=== PATIENT | female | born 1980 | race Caucasian/White ===

== ENCOUNTER 2018-07-19 14:51 | Inpatient (IN) | payer OTHER ==
[2018-07-19 17:11] VITALS: BMI 24.1
--- NOTE | 2018-07-19 19:50 | HP ---
COWS - Scale Resting Pulse: 1= [place] 81-100 Sweatin=Flushed/Facial Moisture Restless Observation: 1= Difficult to Sit Still Pupil Size: 0= Normal to Room Light Bone or Joint Aches: 1= Mild Discomfort Runny Nose/ Eye Tearin= Nasal Congestion GI Upset > 30mins: 5=Frequent Vomit/Diarrhea Tremor Observation: 2= Slight Tremor Visible Yawning Observation: 1= 1-2x During Session Anxiety or Irritability: 2=Irritable/Anxious Goose Flesh Skin: 0=Smooth Skin COWS Score: 16 CIWA Score - CIWA Score Nausea/Vomitin Muscle Tremors: 4-Moderate,w/Arms Extend Anxiety: 3 Agitation: 3 Paroxysmal Sweats: 3 Orientation: 0-Oriented Tacttile Disturbances: 0-None Auditory Disturbances: 0-None Visual Disturbances: 0-None Headache: 1-Very Mild CIWA-Ar Total Score: 17 Admission ROS BHS - HPI Chief Complaint: I need to have detox" Allergies/Adverse Reactions: Allergies Allergy/AdvReac Type Severity Reaction Status Date / Time No Known Allergies Allergy Verified 07/19/18 19:00 History of Present Illness: Pt is a 38 y/o female with a 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 Stated she last used "21/2" days ago because I was running out of money". This is pt's first visit here. She stated she had detox in [facility] about a week ago. Endorses 3 years of Sobriety from 2014 - 2016, but relapsed last thanks when her brother from Overdose. Hx - Gastric bypass x 10 yrs ago, Blood clots(lung) x 17 yrs ago. Psych hx - Bipolar, depression,Anxiety. Denies past or current SI. Exam Limitations: No Limitations - Ebola screening Have you traveled outside of the country in the last 21 days: No (N) Have you had contact with anyone from an Ebola affected area: No Have you been sick,other than usual withdrawal symptoms: No Do you have a fever: No - Review of Systems Constitutional: Loss of Appetite, Unintentional Wgt. Loss EENT: reports: Blurred Vision (wears reading glasses) Respiratory: reports: No Symptoms reported Cardiac: reports: No Symptoms Reported GI: reports: Nausea, Poor Appetite, Abdominal cramping : reports: No Symptoms Reported Musculoskeletal: reports: Back Pain, Joint Pain Integumentary: reports: No Symptoms Reported Neuro: reports: Headache, Seizure (15 yrs ago) Endocrine: reports: No Symptoms Reported Hematology: reports: Anemia Psychiatric: reports: Orientated x3, Agitated, Anxious Other Systems: Reviewed and Negative Patient History - Patient Medical History Hx Anemia: Yes Hx Asthma: No Hx Chronic Obstructive Pulmonary Disease (COPD): No Hx Cancer: No Hx Cardiac Disorders: No Hx Congestive Heart Failure: No Hx Hypertension: No Hx Hypercholesterolemia: No Hx Pacemaker: No HX Cerebrovascular Accident: No Hx Seizures: No Hx Dementia: No Hx Diabetes: No Hx Gastrointestinal Disorders: No Hx Liver Disease: No Hx Genitourinary Disorders: No Hx Sexually Transmitted Disorders: No Hx Renal Disease (ESRD): No Hx Thyroid Disease: No Hx Human Immunodeficiency Virus (HIV): No (Negative last time tested) Hx Hepatitis C: No Hx Depression: Yes (On Gabapentin, Buspar, Wellbutrin) Hx Suicide Attempt: No (Denies ) Hx Bipolar Disorder: Yes Hx Schizophrenia: No - Patient Surgical History Past Surgical History: Yes Hx Abdominal Surgery: Yes (GAstric bypass - 2006, Umblical hernia repair - 2012) Hx Appendectomy: No Hx Cholecystectomy: No Hx Genitourinary Surgery: No Hx Section: No Hx Orthopedic Surgery: No Hx Hysterectomy: No Anesthesia Reaction: No - PPD History Previous Implant?: No Implanted On Prior R Admission?: No PPD to be Administered?: Yes - Reproductive History Patient is a Female of Child Bearing Age (11 -55 yrs old): Yes Last Menstrual Period: 07/15/18 Patient : No - Smoking Cessation Smoking history: Current every day smoker Aproximately how many cigarettes per day: 20 Initiated information on smoking cessation: Yes 'Breaking Loose' booklet given: 07/19/18 - Substance & Tx. History Hx Alcohol Use: No Hx Substance Use: Yes Substance Use Type: Tranquilizers Hx Substance Use Treatment: Yes - Substances Abused Alprazolam (Xanax) Route: Oral Frequency: Daily Amount used: 2 bars Age of first use: 20 Date of Last Use: 07/17/18 Benzodiazepine (Klonopin) Route: Oral Frequency: Daily Amount used: 2 - 4 tabs Age of first use: 20 Date of Last Use: 07/17/18 Family Disease History - Family Disease History Family Disease History: Diabetes: Father Admission Physical Exam [facility] - Vital Signs Vital Signs: Vital Signs - 24 hr 07/19/18 17:08 Temperature 98.3 F Pulse Rate 85 Respiratory 18 Rate Blood Pressure 140/91 - Physical General Appearance: Yes: Within Normal Limits, Moderate Distress, Irritable, Anxious HEENTM: Yes: Other (wears glasses) Respiratory: Yes: No Respiratory Distress, No Accessory Muscle Use Neck: Yes: No masses,lesions,Nodules, Trachea in good position Breast: Yes: Breast Exam Deferred Cardiology: Yes: Regular Rate Abdominal: Yes: Normal Bowel Sounds, Non Tender, Soft Genitourinary: Yes: Within Normal Limits Back: Yes: Normal Inspection Musculoskeletal: Yes: full range of Motion, Gait Steady Extremities: Yes: Normal Capillary Refill, Normal Inspection, Normal Range of Motion Neurological: Yes: Fully Oriented, Motor Strength 5/5 Integumentary: Yes: Normal Color, Dry Lymphatic: Yes: Within Normal Limits - Diagnostic (1) Sedative hypnotic or anxiolytic dependence Current Visit: Yes Status: Acute (2) Nicotine addiction Current Visit: Yes Status: Acute (3) Gastric bypass status for obesity Current Visit: Yes Status: Resolved (4) Depression Current Visit: Yes Status: Acute (5) Anxiety Current Visit: Yes Status: Acute (6) Weight loss Current Visit: Yes Status: Acute Cleared for Admission [facility] - Detox or Rehab [facility] Level of Care: Medically Managed Detox Regimen/Protocol: Methadone/Valium [facility] Breath Alcohol Content Breath Alcohol Content: 0 Urine Pregancy Test - Result Urine Test Results: Negative- NO Line Present Urine Drug Screen - Results Drug Screen Negative: No Urine Drug Screen Results: AMP-Amphetamines, BZO-Benzodiazepines
[2018-07-19] MEDS ORDERED: METHADONE HCL 10 MG TABLET (FOR DETOX USE ONLY) PO ONE ×2 (20:46→23:00)
[2018-07-19] MEDS ORDERED: P-EPHED 60MG/TRIPROLIDI 2.5MG TABLET PO PRN (20:46)
[2018-07-19] MEDS ORDERED: MENTHOL/PHENOL 1 EACH UD MM PRN (20:46)
[2018-07-19] MEDS ORDERED: guaiFENesin/D-METHORPHAN HB 10 ML UNIT-DOSE CUPS PO PRN (20:46)
[2018-07-19] MEDS ORDERED: MAGNESIUM CITRATE 300 ML BOTTLE PO PRN (20:46)
[2018-07-19] MEDS ORDERED: diazePAM 5 MG TABLET PO ONE (20:46)
[2018-07-19] MEDS ORDERED: LOPERAMIDE HCL 2 MG CAPSULE PO PRN (20:46)
[2018-07-19 23:27] LABS: URINE APPEARANCE CLEAR; URINE BILIRUBIN NEGATIVE (<2.0 mg/dL); URINE COLOR YELLOW; URINE GLUCOSE (UA) NEGATIVE (NEGATIVE); URINE KETONE NEGATIVE (NEGATIVE); URINE LEUK ESTERASE NEGATIVE (NEGATIVE); URINE NITRITE NEGATIVE (NEGATIVE); URINE PROTEIN NEGATIVE (NEGATIVE); URINE UROBILINOGEN NEGATIVE mg/dL (0.2-1.0)
[2018-07-19] MEDS: NICOTINE 21 MG/24 HOURS TOPICAL PATCH TD SCH (23:46)
[2018-07-19] MEDS: metoPROLOL SUCCINATE 25 MG TAB.SR.24H (FP) PO SCH (23:53)
[2018-07-19] MEDS: THIAMINE HCL 100 MG TABLET (FP) PO SCH (23:55)
[2018-07-19] MEDS: IBUPROFEN 400 MG TABLET (FP) PO PRN (23:55)
[2018-07-20] MEDS: MELATONIN 5 MG TABLETS PO PRN ×2 (00:03→22:51)
[2018-07-20] MEDS: diazePAM 5 MG TABLET PO SCH ×4 (00:07→22:49)
[2018-07-20] MEDS ORDERED: LIDOCAINE VISCOUS 2% ORAL/TOP 20 ML UNIT-DOSE CUP MM PRN (00:56)
[2018-07-20] MEDS: MAG HYDROX/AL HYDROX/SIMETH 30 ML UNIT-DOSE CUP PO PRN ×2 (06:58→17:48)
[2018-07-20] MEDS ORDERED: METHADONE HCL 10 MG TABLET (FOR DETOX USE ONLY) PO SCH (10:00)
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
[2018-07-20 10:18] LABS: HEMATOCRIT 25.9 % (32.4-45.2); HEMOGLOBIN 7.7 GM/dL (10.7-15.3); MCHC 29.7 g/dl (32.0-36.0); MEAN CELL VOLUME 63.4 fl (80-96); MEAN PLT VOLUME 8.8 fl (7.5-11.1); PLATELET COUNT 244 K/MM3 (134-434); RBC 4.09 M/mm3 (3.60-5.2); RDW 22.3 % (11.6-15.6)
[2018-07-20 10:23] LABS: MCH 18.8 pg (25.7-33.7)
[2018-07-20] MEDS: METHADONE HCL 10 MG TABLET (FOR DETOX USE ONLY) PO SCH (10:24)
[2018-07-20] MEDS: metoPROLOL SUCCINATE 25 MG TAB.SR.24H (FP) PO SCH (10:25)
[2018-07-20] MEDS: NICOTINE 21 MG/24 HOURS TOPICAL PATCH TD SCH (10:25)
[2018-07-20] MEDS: PRENATAL VITAMINS W/ FOLIC ACID TABLET (FP) PO SCH (10:25)
[2018-07-20] MEDS ORDERED: ONDANSETRON *ODT* 4 MG TABLET SL ONE (10:33)
[2018-07-20 10:35] LABS: ALBUMIN 3.9 g/dl (3.4-5.0); ALK PHOS 117 U/L (45-117); ANION GAP 10 MMOL/L (8-16); BILIRUBIN,TOTAL 0.4 mg/dL (0.2-1); BLOOD UREA NITROGEN 14 mg/dL (7-18); CALCIUM 8.7 mg/dL (8.5-10.1); CHLORIDE 106 mmol/L (98-107); CO2 25 mmol/L (21-32); GLUCOSE,RANDOM 52 mg/dL (74-106); POTASSIUM 3.6 mmol/L (3.5-5.1); SGOT/AST 82 U/L (15-37); SGPT/ALT 79 U/L (13-61); SODIUM 142 mmol/L (136-145); TOT PROT 7.3 g/dl (6.4-8.2)
[2018-07-20] MEDS: diazePAM 5 MG TABLET PO PRN ×2 (10:51→17:48)
[2018-07-20] MEDS: VENLAFAXINE HCL 37.5 MG E.R. CAPSULE (FP) PO SCH (11:15)
[2018-07-20] MEDS ORDERED: LIDOCAINE VISCOUS 2% ORAL/TOP 100 ML BOTTLE MM PRN (12:45)
[2018-07-20] MEDS: IBUPROFEN 400 MG TABLET (FP) PO PRN (12:47)
[2018-07-20] MEDS: GABAPENTIN 300 MG CAPSULE (FP) PO SCH ×2 (13:13→22:49)
[2018-07-20] MEDS: BACLOFEN 10 MG TABLET (FP) PO SCH ×2 (13:14→22:49)
[2018-07-20] MEDS ORDERED: PATIENT'S OWN MEDICATION (NON-FORMULARY) (Clindamycin [Cleocin -] 300 MG) PO SCH (14:00)
--- NOTE | 2018-07-20 15:25 | PN ---
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6-15.6) H 07/20/18 07:30 Plt Count 244 K/MM3 (134-434) 07/20/18 07:30 MPV 8.8 fl (7.5-11.1) 07/20/18 07:30 Sodium 142 mmol/L (136-145) 07/20/18 07:30 Potassium 3.6 mmol/L (3.5-5.1) 07/20/18 07:30 Chloride 106 mmol/L (98-107) 07/20/18 07:30 Carbon Dioxide 25 mmol/L (21-32) 07/20/18 07:30 Anion Gap 10 MMOL/L (8-16) 07/20/18 07:30 BUN 14 mg/dL (7-18) 07/20/18 07:30 Creatinine 1.0 mg/dL (0.55-1.3) 07/20/18 07:30 Creat Clearance w eGFR > 60 (>60) 07/20/18 07:30 Random Glucose 52 mg/dL (74-106) L 07/20/18 07:30 Calcium 8.7 mg/dL (8.5-10.1) 07/20/18 07:30 Total Bilirubin 0.4 mg/dL (0.2-1) 07/20/18 07:30 AST 82 U/L (15-37) H 07/20/18 07:30 ALT 79 U/L (13-61) H 07/20/18 07:30 Alkaline Phosphatase 117 U/L (45-117) 07/20/18 07:30 Total Protein 7.3 g/dl (6.4-8.2) 07/20/18 07:30 Albumin 3.9 g/dl (3.4-5.0) 07/20/18 07:30 Urine Color Yellow 07/19/18 21:00 Urine Appearance Clear 07/19/18 21:00 Urine pH 6.0 (5.0-8.0) 07/19/18 21:00 Ur Specific [place] 1.016 (1.001-1.035) 07/19/18 21:00 Urine Protein Negative (NEGATIVE) 07/19/18 21:00 Urine Glucose (UA) Negative (NEGATIVE) 07/19/18 21:00 Urine Ketones Negative (NEGATIVE) 07/19/18 21:00 Urine Blood Negative (NEGATIVE) 07/19/18 21:00 Urine Nitrite Negative (NEGATIVE) 07/19/18 21:00 Urine Bilirubin Negative (<2.0 mg/dL) 07/19/18 21:00 Urine Urobilinogen Negative mg/dL (0.2-1.0) 07/19/18 21:00 Ur Leukocyte Esterase Negative (NEGATIVE) 07/19/18 21:00 RPR Titer Nonreactive (NONREACTIVE) 07/20/18 07:30 HIV 1&2 Antibody Screen Negative 07/20/18 07:30 HIV P24 Antigen Negative 07/20/18 07:30 lab noted Assessment: 07/20/18 15:27 withdrawal sx tooth abscess Plan: continue detox continue clinidimycine 300 mg po tid lidocaine oral solution
--- NOTE | 2018-07-20 17:09 | EKG ---
Test Reason : Blood Pressure : / mmHG Vent. Rate : 067 BPM Atrial Rate : 067 BPM P-R Int : 134 ms QRS Dur : 088 ms QT Int : 402 ms P-R-T Axes : 053 048 046 degrees QTc Int : 424 ms NORMAL SINUS RHYTHM NORMAL ECG NO PREVIOUS ECGS AVAILABLE Confirmed by MD Paul, Anthony ([id number]) on 07/20/2018 5:08:37 PM Referred By: Confirmed By:Anthony Miller MD
[2018-07-20] MEDS: ACETAMINOPHEN 325 MG TABLET (FP) PO PRN (17:49)
[2018-07-20] MEDS: THIAMINE HCL 100 MG TABLET (FP) PO SCH (22:49)
[2018-07-21] MEDS: GABAPENTIN 300 MG CAPSULE (FP) PO SCH ×3 (06:31→22:17)
[2018-07-21] MEDS: BACLOFEN 10 MG TABLET (FP) PO SCH ×3 (06:31→22:16)
[2018-07-21] MEDS: diazePAM 5 MG TABLET PO PRN ×2 (06:32→16:38)
[2018-07-21] MEDS ORDERED: PATIENT'S OWN MEDICATION (NON-FORMULARY) (Clindamycin [Cleocin -] 300 MG) PO SCH (10:00)
[2018-07-21] MEDS: diazePAM 5 MG TABLET PO SCH ×2 (10:17→22:17)
[2018-07-21] MEDS: METHADONE HCL 5 MG TABLET (FOR DETOX USE ONLY) PO SCH (10:17)
[2018-07-21] MEDS: VENLAFAXINE HCL 37.5 MG E.R. CAPSULE (FP) PO SCH (10:17)
[2018-07-21] MEDS: metoPROLOL SUCCINATE 25 MG TAB.SR.24H (FP) PO SCH (10:18)
[2018-07-21] MEDS: PRENATAL VITAMINS W/ FOLIC ACID TABLET (FP) PO SCH (10:18)
[2018-07-21] MEDS: NICOTINE 21 MG/24 HOURS TOPICAL PATCH TD SCH (10:18)
[2018-07-21] MEDS: ACETAMINOPHEN 325 MG TABLET (FP) PO PRN (10:23)
[2018-07-21] MEDS: MAG HYDROX/AL HYDROX/SIMETH 30 ML UNIT-DOSE CUP PO PRN ×3 (11:19→22:43)
--- NOTE | 2018-07-21 11:54 | PN ---
[facility] CIWA - CIWA Score Nausea/Vomitin-Mild Nausea/No Vomiting Muscle Tremors: 4-Moderate,w/Arms Extend Anxiety: 1-Mildly Anxious Agitation: 4-Moderately Restless Paroxysmal Sweats: No Perspiration Orientation: 0-Oriented Tacttile Disturbances: 0-None Auditory Disturbances: 0-None Visual Disturbances: 0-None Headache: 0-None Present CIWA-Ar Total Score: 10 S COWS - Scale Resting Pulse: 0= [place] 80 or Below Sweatin= Chills/Flushing Restless Observation: 1= Difficult to Sit Still Pupil Size: 0= Normal to Room Light Bone or Joint Aches: 0= None Runny Nose/ Eye Tearin= None GI Upset > 30mins: 2= Nausea/Diarrhea (Denies diarrhea) Tremor Observation of Outstretched Hands: 2= Slight Tremor Visible Yawning Observation: 0= None Anxiety or Irritability: 1=Feels Anxious/Irritable Goose Flesh Skin: 0=Smooth Skin COWS Score: 7 S Progress Note (SOAP) Subjective: C/o nausea. Denies vomiting or diarrhea. States has some GI issues and is intolerant of milk. States has not had mild since being here. C/o some chills and anxiety. C/o difficulty sleeping. Objective: A&O x 3. Abd soft and non-tender. Mod tremors of hands noted. Some pallor and facial moisture. Pacing the floors. Gait steady Vital Signs 07/21/18 07/21/18 09:23 13:45 Temperature 96.4 F L 97.9 F Pulse Rate 65 84 Respiratory 16 16 Rate Blood Pressure 90/55 L 87/44 L CBC WBC 6.0 K/mm3 (4.0-10.0) 07/20/18 07:30 RBC 4.09 M/mm3 (3.60-5.2) 07/20/18 07:30 Hgb 7.7 GM/dL (10.7-15.3) L 07/20/18 07:30 Hct 25.9 % (32.4-45.2) L 07/20/18 07:30 MCV 63.4 fl (80-96) L 07/20/18 07:30 MCH 18.8 pg (25.7-33.7) L 07/20/18 07:30 MCHC 29.7 g/dl (32.0-36.0) L 07/20/18 07:30 RDW 22.3 % (11.6-15.6) H 07/20/18 07:30 Plt Count 244 K/MM3 (134-434) 07/20/18 07:30 MPV 8.8 fl (7.5-11.1) 07/20/18 07:30 Labs reviewed. Assessment: Withdrawal symptoms. Insomnia Anemia Plan: Continue detox Refer to psych Start FeS4 BID Ensure Clear
--- NOTE | 2018-07-21 12:12 | PN ---
Psychiatric Progress Note Vital Signs: Vital Signs Period Temp Pulse Resp BP Sys/Cooley Pulse Ox Last 24 Hr 96.1 F-97.7 F 61-70 16-18 86-100/55-68 Date of Session: 07/21/18 Chief Complaint:: "I need a sleep aid." HPI: Pt. admitted to for for opioid and benzodiazepine dependence. ROS: Unremarkable Current Medications: Active Medications Generic Name Dose Route Start Last Admin Trade Name Freq PRN Reason Stop Dose Admin Acetaminophen 650 mg 07/19/18 20:46 07/21/18 10:23 Tylenol - PO 650 mg Q4H PRN Administration FEVER Al Hydroxide/Mg Hydroxide 30 ml 07/19/18 20:46 07/21/18 11:19 Mylanta Oral Suspension - PO 30 ml Q6H PRN Administration DYSPEPSIA Baclofen 10 mg 07/20/18 14:00 07/21/18 06:31 Lioresal - PO 10 mg TID MIKAEL Administration Bupropion HCl 300 mg 07/20/18 11:30 07/21/18 10:19 Wellbutrin Xl - PO 300 mg DAILY MIKAEL Administration Buspirone HCl 30 mg 07/20/18 11:30 07/21/18 10:17 Buspar - PO 30 mg BID MIKAEL Administration Clindamycin HCl 300 mg 07/21/18 14:00 Cleocin - PO TID MIKAEL Diazepam 5 mg 07/21/18 10:00 07/21/18 10:17 Valium - PO 07/22/18 22:01 5 mg BID MIKAEL Administration Diazepam 5 mg 07/23/18 10:00 Valium - PO 07/23/18 10:01 DAILY MIKAEL Diazepam 10 mg 07/19/18 20:46 07/21/18 06:32 Valium - PO 07/22/18 20:47 10 mg Q4H PRN Administration WITHDRAWAL(CONT SUBST) Eucalyptus/Menthol/Phenol/Sorbitol 1 each 07/19/18 20:46 Cepastat Lozenge - MM Q4H PRN SORE THROAT Ferrous Sulfate 325 mg 07/21/18 17:30 Feosol - PO BIDWM MIKAEL Gabapentin 600 mg 07/20/18 14:00 07/21/18 06:31 Neurontin - PO 600 mg TID MIKAEL Administration Guaifenesin 10 ml 07/19/18 20:46 Robitussin Dm - PO Q6H PRN COUGH Ibuprofen 400 mg 07/19/18 20:46 07/20/18 12:47 Motrin - PO 400 mg Q6H PRN Administration PAIN LEVEL 4-6 Lidocaine HCl 20 ml 07/20/18 00:56 Xylocaine 2% Viscous Oral - MM Q6HPO PRN ORAL PAIN/MOUTH SORES Lidocaine HCl 15 ml 07/20/18 12:45 07/21/18 10:24 Xylocaine 2% Viscous MM 15 ml Q6H PRN Administration FOR TOOTHACHE Loperamide HCl 4 mg 07/19/18 20:46 Imodium - PO Q6H PRN DIARRHEA Magnesium Citrate 300 ml 07/19/18 20:46 Citroma - PO Q48H PRN CONSTIPATION Magnesium Hydroxide 30 ml 07/19/18 20:46 Milk Of Magnesia - PO DAILY PRN CONSTIPATION Melatonin 5 mg 07/19/18 22:00 07/20/18 22:51 Melatonin PO 5 mg HS PRN Administration INSOMNIA Methadone HCl 10 mg 07/23/18 10:00 07/20/18 10:24 Dolophine - PO 07/23/18 10:01 10 mg DAILY MIKAEL Administration Methadone HCl 15 mg 07/21/18 10:00 07/21/18 10:17 Dolophine - PO 07/22/18 10:01 15 mg DAILY MIKAEL Administration Methadone HCl 5 mg 07/24/18 06:00 Dolophine - PO 07/24/18 06:01 DAILY@0600 MIKAEL Metoprolol Succinate 25 mg 07/19/18 21:00 07/21/18 10:18 Toprol Xl - PO Not Given DAILY MIKAEL Nicotine 21 mg 07/19/18 21:00 07/21/18 10:18 Nicoderm Patch - TD 21 mg DAILY MIKAEL Administration Multivit/Folic Acid/Iron 1 tab 07/20/18 10:00 07/21/18 10:18 Vitamins (Sjr) - PO 1 tab DAILY MIKAEL Administration Pseudoephedrine/Triprolidine 1 combo 07/19/18 20:46 Actifed - PO TID PRN NASAL CONGESTION Thiamine HCl 100 mg 07/19/18 22:00 07/20/18 22:49 Vitamin B1 - PO 100 mg HS MIKAEL Administration Venlafaxine HCl 37.5 mg 07/20/18 11:15 07/21/18 10:17 Effexor Xr - PO 37.5 mg DAILY MIKAEL Administration Medication(s) Change(s): Will add ambien 5mg and d/c Melatonin 5mg. Current Side Effect: No Lab tests ordered: No Lab tests reviewed: Yes Provider note:: Chart reviewed. Dr. Kaye's note read and appreciated. Pt. reports poor sleep. States the melatonin 5mg is not effective. Pt. refuses to accept trazodone. Reports migranes from accepting trazodone Pt. requesting ambien 5mg. Sleep hygiene discussed. Benefits and side effects discussed. Pt. made aware of the risk of parasomnia when accepting ambien. Verbal consent given. Total face to face time:: 25 Mental Status Exam - Mental Status Exam Alert and Oriented to: Time, Place, Person Cognitive Function: Good Patient Appearance: Well Groomed Mood: Hopeful, Euthymic Affect: Mood Congruent Patient Behavior: Appropriate, Cooperative Speech Pattern: Clear, Appropriate Voice Loudness: Normal Thought Process: Intact, Goal Oriented Thought Disorder: Not Present Hallucinations: Denies Suicidal Ideation: Denies Homicidal Ideation: Denies Insight/Judgement: Poor Sleep: Poorly Appetite: Fair Muscle strength/Tone: Normal Gait/Station: Normal Psychiatric Treatment Plan - Problem List (1) Sedative hypnotic or anxiolytic dependence Current Visit: Yes (2) Substance induced mood disorder Current Visit: Yes (3) Bipolar II disorder Current Visit: Yes (4) Nicotine addiction Current Visit: Yes (5) Opioid dependence with withdrawal Current Visit: Yes (6) Substance-induced sleep disorder Current Visit: Yes
[2018-07-21] MEDS: CLINDAMYCIN HCL 150 MG CAPSULE (FP) PO SCH ×2 (13:57→22:16)
[2018-07-21] MEDS: FERROUS SO4 325 MG TABLET (FP) PO SCH (16:38)
--- NOTE | 2018-07-21 16:51 | PN ---
BHS Progress Note Note: Continue to c/o (R) upper molar tooth ache. States started taking Clindamycin 5 days prior to hospitalization. Upper back molar tooth is broken and gums tender to touch. Continue Clindamycin for an additional 3 days. Encourage dental f/u upon discharge.
[2018-07-21] MEDS ORDERED: FERROUS SO4 325 MG TABLET (FP) PO SCH (22:00)
[2018-07-21] MEDS: DOCUSATE SODIUM 100 MG CAPSULE (FP) PO SCH (22:16)
[2018-07-21] MEDS: ZOLPIDEM TARTRATE 5 MG TABLET PO PRN (22:16)
[2018-07-21] MEDS: THIAMINE HCL 100 MG TABLET (FP) PO SCH (22:17)
[2018-07-21] MEDS: IBUPROFEN 400 MG TABLET (FP) PO PRN (22:21)
[2018-07-22] MEDS: GABAPENTIN 300 MG CAPSULE (FP) PO SCH ×3 (05:40→22:10)
[2018-07-22] MEDS: BACLOFEN 10 MG TABLET (FP) PO SCH ×3 (05:41→22:10)
[2018-07-22] MEDS: DOCUSATE SODIUM 100 MG CAPSULE (FP) PO SCH ×3 (05:41→22:10)
[2018-07-22] MEDS: CLINDAMYCIN HCL 150 MG CAPSULE (FP) PO SCH ×3 (05:42→22:11)
[2018-07-22] MEDS: IBUPROFEN 400 MG TABLET (FP) PO PRN ×3 (05:44→22:14)
[2018-07-22] MEDS: diazePAM 5 MG TABLET PO PRN ×3 (05:48→19:15)
[2018-07-22] MEDS: FERROUS SO4 325 MG TABLET (FP) PO SCH ×2 (08:15→17:30)
[2018-07-22] MEDS: METHADONE HCL 5 MG TABLET (FOR DETOX USE ONLY) PO SCH (10:26)
[2018-07-22] MEDS: metoPROLOL SUCCINATE 25 MG TAB.SR.24H (FP) PO SCH (10:26)
[2018-07-22] MEDS: diazePAM 5 MG TABLET PO SCH ×2 (10:26→22:10)
[2018-07-22] MEDS: VENLAFAXINE HCL 37.5 MG E.R. CAPSULE (FP) PO SCH (10:27)
[2018-07-22] MEDS: NICOTINE 21 MG/24 HOURS TOPICAL PATCH TD SCH (10:27)
[2018-07-22] MEDS: PRENATAL VITAMINS W/ FOLIC ACID TABLET (FP) PO SCH (10:27)
--- NOTE | 2018-07-22 13:36 | PN ---
BHS Progress Note (SOAP) Subjective: joints pain body aches sweat tremor restlessness Objective: 07/22/18 13:37 Vital Signs Temperature 98.4 F 07/22/18 13:18 Pulse Rate 80 07/22/18 13:18 Respiratory Rate 18 07/22/18 13:18 Blood Pressure 104/68 07/22/18 13:18 O2 Sat by Pulse Oximetry (%) Laboratory Last Values WBC 6.0 K/mm3 (4.0-10.0) 07/20/18 07:30 RBC 4.09 M/mm3 (3.60-5.2) 07/20/18 07:30 Hgb 7.7 GM/dL (10.7-15.3) L 07/20/18 07:30 Hct 25.9 % (32.4-45.2) L 07/20/18 07:30 MCV 63.4 fl (80-96) L 07/20/18 07:30 MCH 18.8 pg (25.7-33.7) L 07/20/18 07:30 MCHC 29.7 g/dl (32.0-36.0) L 07/20/18 07:30 RDW 22.3 % (11.6-15.6) H 07/20/18 07:30 Plt Count 244 K/MM3 (134-434) 07/20/18 07:30 MPV 8.8 fl (7.5-11.1) 07/20/18 07:30 Sodium 142 mmol/L (136-145) 07/20/18 07:30 Potassium 3.6 mmol/L (3.5-5.1) 07/20/18 07:30 Chloride 106 mmol/L (98-107) 07/20/18 07:30 Carbon Dioxide 25 mmol/L (21-32) 07/20/18 07:30 Anion Gap 10 MMOL/L (8-16) 07/20/18 07:30 BUN 14 mg/dL (7-18) 07/20/18 07:30 Creatinine 1.0 mg/dL (0.55-1.3) 07/20/18 07:30 Creat Clearance w eGFR > 60 (>60) 07/20/18 07:30 Random Glucose 52 mg/dL (74-106) L 07/20/18 07:30 Calcium 8.7 mg/dL (8.5-10.1) 07/20/18 07:30 Total Bilirubin 0.4 mg/dL (0.2-1) 07/20/18 07:30 AST 82 U/L (15-37) H 07/20/18 07:30 ALT 79 U/L (13-61) H 07/20/18 07:30 Alkaline Phosphatase 117 U/L (45-117) 07/20/18 07:30 Total Protein 7.3 g/dl (6.4-8.2) 07/20/18 07:30 Albumin 3.9 g/dl (3.4-5.0) 07/20/18 07:30 Urine Color Yellow 07/19/18 21:00 Urine Appearance Clear 07/19/18 21:00 Urine pH 6.0 (5.0-8.0) 07/19/18 21:00 Ur Specific [place] 1.016 (1.001-1.035) 07/19/18 21:00 Urine Protein Negative (NEGATIVE) 07/19/18 21:00 Urine Glucose (UA) Negative (NEGATIVE) 07/19/18 21:00 Urine Ketones Negative (NEGATIVE) 07/19/18 21:00 Urine Blood Negative (NEGATIVE) 07/19/18 21:00 Urine Nitrite Negative (NEGATIVE) 07/19/18 21:00 Urine Bilirubin Negative (<2.0 mg/dL) 07/19/18 21:00 Urine Urobilinogen Negative mg/dL (0.2-1.0) 07/19/18 21:00 Ur Leukocyte Esterase Negative (NEGATIVE) 07/19/18 21:00 RPR Titer Nonreactive (NONREACTIVE) 07/20/18 07:30 HIV 1&2 Antibody Screen Negative 07/20/18 07:30 HIV P24 Antigen Negative 07/20/18 07:30 lab noted Assessment: 07/22/18 13:37 withdrawal sx Plan: continue detox
[2018-07-22] MEDS: MAGNESIUM HYDROX 2400MG/30ML ORAL SUSPENSION 30 ML CUP PO PRN (14:42)
[2018-07-22] MEDS: THIAMINE HCL 100 MG TABLET (FP) PO SCH (22:10)
[2018-07-22] MEDS: ZOLPIDEM TARTRATE 5 MG TABLET PO PRN (22:11)
[2018-07-22] MEDS: MAG HYDROX/AL HYDROX/SIMETH 30 ML UNIT-DOSE CUP PO PRN (22:11)
[2018-07-23] MEDS: CLINDAMYCIN HCL 150 MG CAPSULE (FP) PO SCH (06:11)
[2018-07-23] MEDS: BACLOFEN 10 MG TABLET (FP) PO SCH ×3 (06:11→22:17)
[2018-07-23] MEDS: DOCUSATE SODIUM 100 MG CAPSULE (FP) PO SCH ×3 (06:12→22:17)
[2018-07-23] MEDS: GABAPENTIN 300 MG CAPSULE (FP) PO SCH ×3 (06:13→22:17)
[2018-07-23] MEDS ORDERED: diazePAM 5 MG TABLET PO SCH (10:00)
[2018-07-23] MEDS: METHADONE HCL 10 MG TABLET (FOR DETOX USE ONLY) PO SCH (10:44)
[2018-07-23] MEDS: metoPROLOL SUCCINATE 25 MG TAB.SR.24H (FP) PO SCH (10:45)
[2018-07-23] MEDS: FERROUS SO4 325 MG TABLET (FP) PO SCH ×2 (10:46→16:51)
[2018-07-23] MEDS: VENLAFAXINE HCL 37.5 MG E.R. CAPSULE (FP) PO SCH (10:46)
[2018-07-23] MEDS: PRENATAL VITAMINS W/ FOLIC ACID TABLET (FP) PO SCH (10:46)
[2018-07-23] MEDS: NICOTINE 21 MG/24 HOURS TOPICAL PATCH TD SCH (10:46)
[2018-07-23] MEDS: IBUPROFEN 400 MG TABLET (FP) PO PRN ×2 (10:51→22:17)
--- NOTE | 2018-07-23 13:37 | PN ---
BHS Progress Note (SOAP) Subjective: feeling better no body ache no tremor sleep better at night Objective: 07/23/18 13:46 Vital Signs Temperature 97.5 F L 07/23/18 13:10 Pulse Rate 68 07/23/18 13:10 Respiratory Rate 16 07/23/18 13:10 Blood Pressure 92/63 07/23/18 13:10 O2 Sat by Pulse Oximetry (%) Laboratory Last Values WBC 6.0 K/mm3 (4.0-10.0) 07/20/18 07:30 RBC 4.09 M/mm3 (3.60-5.2) 07/20/18 07:30 Hgb 7.7 GM/dL (10.7-15.3) L 07/20/18 07:30 Hct 25.9 % (32.4-45.2) L 07/20/18 07:30 MCV 63.4 fl (80-96) L 07/20/18 07:30 MCH 18.8 pg (25.7-33.7) L 07/20/18 07:30 MCHC 29.7 g/dl (32.0-36.0) L 07/20/18 07:30 RDW 22.3 % (11.6-15.6) H 07/20/18 07:30 Plt Count 244 K/MM3 (134-434) 07/20/18 07:30 MPV 8.8 fl (7.5-11.1) 07/20/18 07:30 Sodium 142 mmol/L (136-145) 07/20/18 07:30 Potassium 3.6 mmol/L (3.5-5.1) 07/20/18 07:30 Chloride 106 mmol/L (98-107) 07/20/18 07:30 Carbon Dioxide 25 mmol/L (21-32) 07/20/18 07:30 Anion Gap 10 MMOL/L (8-16) 07/20/18 07:30 BUN 14 mg/dL (7-18) 07/20/18 07:30 Creatinine 1.0 mg/dL (0.55-1.3) 07/20/18 07:30 Creat Clearance w eGFR > 60 (>60) 07/20/18 07:30 Random Glucose 52 mg/dL (74-106) L 07/20/18 07:30 Calcium 8.7 mg/dL (8.5-10.1) 07/20/18 07:30 Total Bilirubin 0.4 mg/dL (0.2-1) 07/20/18 07:30 AST 82 U/L (15-37) H 07/20/18 07:30 ALT 79 U/L (13-61) H 07/20/18 07:30 Alkaline Phosphatase 117 U/L (45-117) 07/20/18 07:30 Total Protein 7.3 g/dl (6.4-8.2) 07/20/18 07:30 Albumin 3.9 g/dl (3.4-5.0) 07/20/18 07:30 Urine Color Yellow 07/19/18 21:00 Urine Appearance Clear 07/19/18 21:00 Urine pH 6.0 (5.0-8.0) 07/19/18 21:00 Ur Specific [place] 1.016 (1.001-1.035) 07/19/18 21:00 Urine Protein Negative (NEGATIVE) 07/19/18 21:00 Urine Glucose (UA) Negative (NEGATIVE) 07/19/18 21:00 Urine Ketones Negative (NEGATIVE) 07/19/18 21:00 Urine Blood Negative (NEGATIVE) 07/19/18 21:00 Urine Nitrite Negative (NEGATIVE) 07/19/18 21:00 Urine Bilirubin Negative (<2.0 mg/dL) 07/19/18 21:00 Urine Urobilinogen Negative mg/dL (0.2-1.0) 07/19/18 21:00 Ur Leukocyte Esterase Negative (NEGATIVE) 07/19/18 21:00 RPR Titer Nonreactive (NONREACTIVE) 07/20/18 07:30 HIV 1&2 Antibody Screen Negative 07/20/18 07:30 HIV P24 Antigen Negative 07/20/18 07:30 lab noted Assessment: 07/23/18 13:46 mild withdrawal sx Plan: medically supervised detox
[2018-07-23] MEDS: MAGNESIUM HYDROX 2400MG/30ML ORAL SUSPENSION 30 ML CUP PO PRN (15:48)
[2018-07-23] MEDS: THIAMINE HCL 100 MG TABLET (FP) PO SCH (22:16)
[2018-07-23] MEDS: ZOLPIDEM TARTRATE 5 MG TABLET PO PRN (22:16)
[2018-07-23] MEDS: MAG HYDROX/AL HYDROX/SIMETH 30 ML UNIT-DOSE CUP PO PRN (22:18)
[2018-07-24] MEDS ORDERED: METHADONE HCL 5 MG TABLET (FOR DETOX USE ONLY) PO SCH (06:00)
[2018-07-24] MEDS: GABAPENTIN 300 MG CAPSULE (FP) PO SCH (06:23)
[2018-07-24] MEDS: DOCUSATE SODIUM 100 MG CAPSULE (FP) PO SCH (06:23)
[2018-07-24] MEDS: BACLOFEN 10 MG TABLET (FP) PO SCH (06:23)
[2018-07-24] MEDS: FERROUS SO4 325 MG TABLET (FP) PO SCH (08:03)
[2018-07-24 09:19] VITALS: BP 92/56; PULSE 73; TEMP 96.4
--- NOTE | 2018-07-24 09:21 | DS ---
[facility] Detox Discharge Summary Admission Date: 07/19/18 Discharge Date: 07/24/18 - History Present History: Opioid Dependence, Sedative Dependence Pertinent Past History: Vital Signs Temperature 96.4 F L 07/24/18 09:19 Pulse Rate 73 07/24/18 09:19 Respiratory Rate 16 07/24/18 09:19 Blood Pressure 92/56 L 07/24/18 09:19 O2 Sat by Pulse Oximetry (%) Laboratory Last Values WBC 6.0 K/mm3 (4.0-10.0) 07/20/18 07:30 RBC 4.09 M/mm3 (3.60-5.2) 07/20/18 07:30 Hgb 7.7 GM/dL (10.7-15.3) L 07/20/18 07:30 Hct 25.9 % (32.4-45.2) L 07/20/18 07:30 MCV 63.4 fl (80-96) L 07/20/18 07:30 MCH 18.8 pg (25.7-33.7) L 07/20/18 07:30 MCHC 29.7 g/dl (32.0-36.0) L 07/20/18 07:30 RDW 22.3 % (11.6-15.6) H 07/20/18 07:30 Plt Count 244 K/MM3 (134-434) 07/20/18 07:30 MPV 8.8 fl (7.5-11.1) 07/20/18 07:30 Sodium 142 mmol/L (136-145) 07/20/18 07:30 Potassium 3.6 mmol/L (3.5-5.1) 07/20/18 07:30 Chloride 106 mmol/L (98-107) 07/20/18 07:30 Carbon Dioxide 25 mmol/L (21-32) 07/20/18 07:30 Anion Gap 10 MMOL/L (8-16) 07/20/18 07:30 BUN 14 mg/dL (7-18) 07/20/18 07:30 Creatinine 1.0 mg/dL (0.55-1.3) 07/20/18 07:30 Creat Clearance w eGFR > 60 (>60) 07/20/18 07:30 Random Glucose 52 mg/dL (74-106) L 07/20/18 07:30 Calcium 8.7 mg/dL (8.5-10.1) 07/20/18 07:30 Total Bilirubin 0.4 mg/dL (0.2-1) 07/20/18 07:30 AST 82 U/L (15-37) H 07/20/18 07:30 ALT 79 U/L (13-61) H 07/20/18 07:30 Alkaline Phosphatase 117 U/L (45-117) 07/20/18 07:30 Total Protein 7.3 g/dl (6.4-8.2) 07/20/18 07:30 Albumin 3.9 g/dl (3.4-5.0) 07/20/18 07:30 Urine Color Yellow 07/19/18 21:00 Urine Appearance Clear 07/19/18 21:00 Urine pH 6.0 (5.0-8.0) 07/19/18 21:00 Ur Specific [place] 1.016 (1.001-1.035) 07/19/18 21:00 Urine Protein Negative (NEGATIVE) 07/19/18 21:00 Urine Glucose (UA) Negative (NEGATIVE) 07/19/18 21:00 Urine Ketones Negative (NEGATIVE) 07/19/18 21:00 Urine Blood Negative (NEGATIVE) 07/19/18 21:00 Urine Nitrite Negative (NEGATIVE) 07/19/18 21:00 Urine Bilirubin Negative (<2.0 mg/dL) 07/19/18 21:00 Urine Urobilinogen Negative mg/dL (0.2-1.0) 07/19/18 21:00 Ur Leukocyte Esterase Negative (NEGATIVE) 07/19/18 21:00 RPR Titer Nonreactive (NONREACTIVE) 07/20/18 07:30 HIV 1&2 Antibody Screen Negative 07/20/18 07:30 HIV P24 Antigen Negative 07/20/18 07:30 - Physical Exam Results Vital Signs: Vital Signs Temperature 96.4 F L 07/24/18 09:19 Pulse Rate 73 07/24/18 09:19 Respiratory Rate 16 07/24/18 09:19 Blood Pressure 92/56 L 07/24/18 09:19 O2 Sat by Pulse Oximetry (%) - Treatment Hospital Course: Detox Protocol Followed, Detoxed Safely, Responded well, Discharged Condition Good, Rehab Referral Accepted Patient has Accepted a Rehab Referral to: [facility] - Medication Discharge Medications: Ambulatory Orders Bupropion HCl [Wellbutrin Sr] 150 mg PO DAILY 07/19/18 Buspirone HCl [Buspar -] 15 mg PO BID 07/19/18 Clindamycin [Cleocin -] 300 mg PO TID 07/19/18 Gabapentin [Neurontin -] 300 mg PO Q8H 07/19/18 Venlafaxine HCl ER [Effexor Xr -] 37.5 mg PO DAILY 07/19/18 Clindamycin [Cleocin -] 300 mg PO TID #7 capsule 07/23/18 Gabapentin [Neurontin -] 600 mg PO TID #90 capsule 07/23/18 Metoprolol Succinate 25 mg PO DAILY #30 tab.er.24h 07/23/18 - Diagnosis (1) Opioid dependence with withdrawal Current Visit: Yes Status: Acute (2) Sedative hypnotic or anxiolytic dependence Current Visit: Yes Status: Acute (3) Anemia Current Visit: Yes Status: Chronic Qualifiers: Anemia type: unspecified type Qualified Code(s): D64.9 - Anemia, unspecified (4) Gastric bypass status for obesity Current Visit: Yes Status: Chronic (5) Nicotine addiction Current Visit: Yes Status: Chronic Qualifiers: Nicotine product type: cigarettes - AMA Did Patient Leave Against Medical Advice: No
[2018-07-24] MEDS: metoPROLOL SUCCINATE 25 MG TAB.SR.24H (FP) PO SCH (10:31)
[2018-07-24] MEDS: PRENATAL VITAMINS W/ FOLIC ACID TABLET (FP) PO SCH (10:32)
[2018-07-24] MEDS: IBUPROFEN 400 MG TABLET (FP) PO PRN (10:34)
[2018-07-24] MEDS: NICOTINE 21 MG/24 HOURS TOPICAL PATCH TD SCH (10:35)
[2018-07-24] MEDS: VENLAFAXINE HCL 37.5 MG E.R. CAPSULE (FP) PO SCH (10:36)
--- NOTE | 2018-07-24 12:12 | PN ---
[facility] Progress Note Note: Vital Signs Temperature 96.4 F L 07/24/18 09:19 Pulse Rate 73 07/24/18 09:19 Respiratory Rate 16 07/24/18 09:19 Blood Pressure 92/56 L 07/24/18 09:19 O2 Sat by Pulse Oximetry (%) Laboratory Last Values WBC 6.0 K/mm3 (4.0-10.0) 07/20/18 07:30 RBC 4.09 M/mm3 (3.60-5.2) 07/20/18 07:30 Hgb 7.7 GM/dL (10.7-15.3) L 07/20/18 07:30 Hct 25.9 % (32.4-45.2) L 07/20/18 07:30 MCV 63.4 fl (80-96) L 07/20/18 07:30 MCH 18.8 pg (25.7-33.7) L 07/20/18 07:30 MCHC 29.7 g/dl (32.0-36.0) L 07/20/18 07:30 RDW 22.3 % (11.6-15.6) H 07/20/18 07:30 Plt Count 244 K/MM3 (134-434) 07/20/18 07:30 MPV 8.8 fl (7.5-11.1) 07/20/18 07:30 Sodium 142 mmol/L (136-145) 07/20/18 07:30 Potassium 3.6 mmol/L (3.5-5.1) 07/20/18 07:30 Chloride 106 mmol/L (98-107) 07/20/18 07:30 Carbon Dioxide 25 mmol/L (21-32) 07/20/18 07:30 Anion Gap 10 MMOL/L (8-16) 07/20/18 07:30 BUN 14 mg/dL (7-18) 07/20/18 07:30 Creatinine 1.0 mg/dL (0.55-1.3) 07/20/18 07:30 Creat Clearance w eGFR > 60 (>60) 07/20/18 07:30 Random Glucose 52 mg/dL (74-106) L 07/20/18 07:30 Calcium 8.7 mg/dL (8.5-10.1) 09/23/18 07:30 Total Bilirubin 0.4 mg/dL (0.2-1) 07/20/18 07:30 AST 82 U/L (15-37) H 07/20/18 07:30 ALT 79 U/L (13-61) H 07/20/18 07:30 Alkaline Phosphatase 117 U/L (45-117) 07/20/18 07:30 Total Protein 7.3 g/dl (6.4-8.2) 07/20/18 07:30 Albumin 3.9 g/dl (3.4-5.0) 07/20/18 07:30 Urine Color Yellow 07/19/18 21:00 Urine Appearance Clear 07/19/18 21:00 Urine pH 6.0 (5.0-8.0) 07/19/18 21:00 Ur Specific [place] 1.016 (1.001-1.035) 07/19/18 21:00 Urine Protein Negative (NEGATIVE) 07/19/18 21:00 Urine Glucose (UA) Negative (NEGATIVE) 07/19/18 21:00 Urine Ketones Negative (NEGATIVE) 07/19/18 21:00 Urine Blood Negative (NEGATIVE) 07/19/18 21:00 Urine Nitrite Negative (NEGATIVE) 07/19/18 21:00 Urine Bilirubin Negative (<2.0 mg/dL) 07/19/18 21:00 Urine Urobilinogen Negative mg/dL (0.2-1.0) 07/19/18 21:00 Ur Leukocyte Esterase Negative (NEGATIVE) 07/19/18 21:00 RPR Titer Nonreactive (NONREACTIVE) 07/20/18 07:30 HIV 1&2 Antibody Screen Negative 07/20/18 07:30 HIV P24 Antigen Negative 07/20/18 07:30 Patient sent to [facility] for further evaluation transported via [employer], endorsed to Dr. Hdz.
== END 2018-07-24 13:27 | disposition home or self-care (01) | DRG 773 ==
LOC: YASAS 14:51 → Y6N 19:47
PROC: HZ2ZZZZ Detoxification Services for Substance Abuse Treatment (ICD-10-PCS; principal; 2018-07-19)
DX: F11.23 Opioid dependence with withdrawal (principal); F13.230 Sedative, hypnotic or anxiolytic dependence with withdrawal, uncomplicated; F17.213 Nicotine dependence, cigarettes, with withdrawal; F19.282 Other psychoactive substance dependence with psychoactive substance-induced sleep disorder; F31.81 Bipolar II disorder; F41.9 Anxiety disorder, unspecified; F32.9 Major depressive disorder, single episode, unspecified; G47.00 Insomnia, unspecified; K04.7 Periapical abscess without sinus; R63.4 Abnormal weight loss; Z68.24 Body mass index [BMI] 24.0-24.9, adult; Z98.84 Bariatric surgery status; D64.9 Anemia, unspecified
CPT/HCPCS: 36415; 80053; 81003; 85027; 86593; 87389; 93005; 93010; J0475; Q0162

== ENCOUNTER 2018-07-24 13:47 | Observation (INO) | payer OTHER ==
[2018-07-24 14:26] VITALS: BMI 23.5
--- NOTE | 2018-07-24 14:49 | PDOC ---
History of Present Illness - General Stated Complaint: Blood Sugar Problem Time Seen by Provider: 07/24/18 13:54 History Source: Patient Exam Limitations: No Limitations - History of Present Illness Initial Comments: 07/24/18 15:16 38-year-old female with historybypass chronic anemia, and borderline hypotension presents to ED with complaints of generalized fatigue over the past few weeks. Patient states was discharged from the detox program in [facility] for heroin abuse this morning. Patient denies headache, visual changes, neck pain, chest pain, abdominal pain, blood in stool, blood in urine, bleeding gums but does state menses is normally 5-7 days. Patient states since having her gastric bypass 7 years ago she has remained anemic. Timing/Duration: constant Severity: mild Associated Symptoms: reports: shortness of breath, weakness Past History - Travel Traveled outside of the country in the last 30 days: No - Past Medical History Allergies/Adverse Reactions: Allergies Allergy/AdvReac Type Severity Reaction Status Date / Time lactose AdvReac Severe Verified 07/21/18 21:54 soy AdvReac Severe Verified 07/21/18 21:54 Home Medications: Ambulatory Orders Bupropion HCl [Wellbutrin Sr] 150 mg PO DAILY 07/19/18 Buspirone HCl [Buspar -] 15 mg PO BID 07/19/18 Clindamycin [Cleocin -] 300 mg PO TID 07/19/18 Gabapentin [Neurontin -] 300 mg PO Q8H 07/19/18 Venlafaxine HCl ER [Effexor Xr -] 37.5 mg PO DAILY 07/19/18 Clindamycin [Cleocin -] 300 mg PO TID #7 capsule 07/23/18 Gabapentin [Neurontin -] 600 mg PO TID #90 capsule 07/23/18 Metoprolol Succinate 25 mg PO DAILY #30 tab.er.24h 07/23/18 Anemia: Yes Asthma: No Cancer: No Cardiac Disorders: No CVA: No COPD: No CHF: No Dementia: No Diabetes: No GI Disorders: No Disorders: No HTN: No Hypercholesterolemia: No Liver Disease: No Seizures: No Thyroid Disease: No - Surgical History Abdominal Surgery: Yes (GAstric bypass - 2006, Umblical hernia repair - 05/2013) Appendectomy: No Cholecystectomy: No Orthopedic Surgery: No - Reproductive History LMP Normal: Yes Is Patient Now?: No - Immunization History Immunization Up to Date: Yes - Suicide/Smoking/Psychosocial Hx Smoking History: Current every day smoker Have you smoked in the past 12 months: Yes Number of Cigarettes Smoked Daily: 20 Information on smoking cessation initiated: Yes 'Breaking Loose' booklet given: 07/19/18 Hx Alcohol Use: No Drug/Substance Use Hx: Yes Substance Use Type: Heroin, Tranquilizers Hx Substance Use Treatment: Yes Patient Lives Alone: No Lives with/in: parents (mother) Review of Systems - Review of Systems Able to Perform ROS?: Yes Constitutional: Yes: Other HEENTM: No: Symptoms Reported Respiratory: Yes: SOB with Exertion Cardiac (ROS): Yes: Lightheadedness (mild) ABD/GI: No: Symptoms Reported : No: Symptoms Reported Musculoskeletal: No: Symptoms Reported Integumentary: No: Symptoms Reported Neurological: Yes: Dizziness (mild) Hematologic/Lymphatic: Yes: Anemia *Physical Exam - Vital Signs Last Vital Signs Temp Pulse Resp BP Pulse Ox 97.9 F 64 18 90/57 L 100 07/24/18 13:47 07/24/18 13:47 07/24/18 13:47 07/24/18 13:47 07/24/18 13:47 - Physical Exam General Appearance: Yes: Nourished, Appropriately Dressed. No: Apparent Distress HEENT: positive: Pharynx Normal (dry), Pale Conjunctivae Neck: positive: Supple Respiratory/Chest: positive: Lungs Clear, Normal Breath Sounds. negative: Respiratory Distress, Accessory Muscle Use Cardiovascular: positive: Regular Rhythm, Regular Rate. negative: Murmur Gastrointestinal/Abdominal: positive: Soft. negative: Tenderness Extremity: positive: Normal Capillary Refill. negative: Pedal Edema Integumentary: positive: Dry, Warm, Pale Neurologic: positive: Normal Mood/Affect, Motor Strength 5/5 ED Treatment Course - LABORATORY CBC & Chemistry Diagram: 07/24/18 14:58 07/24/18 14:58 - RADIOLOGY Radiology Studies Ordered: Category Date Time Status CHEST X-RAY PORTABLE* [RAD] Stat Radiology 07/24/18 14:15 Ordered Medical Decision Making - Medical Decision Making 07/24/18 15:28 Patient sent from [facility] detox program secondary to borderline hypotension, intermittent low glucose along with anemia. Patient also complains of mild weakness, lightheadedness, shortness of breath with exertion. Patient states history of anemia for the past 7 years after having a gastric bypass. Patient has no other complaints at this time. Patient ordered for workup including type and screen. 07/24/18 16:30 Laboratory Tests 07/20/18 07/24/18 07/24/18 07:30 14:58 14:58 WBC 6.0 Hgb 7.7 L 7.2 L Hct 24.2 L MCV 63.0 L RDW 22.9 H Plt Count 244 223 Eosinophils % 6.8 H INR 1.01 Sodium Potassium Chloride Carbon Dioxide Anion Gap BUN Creatinine Random Glucose Magnesium Total Bilirubin AST ALT Alkaline Phosphatase Creatine Kinase Troponin I Total Protein Albumin Lipase 07/24/18 14:58 WBC Hgb Hct MCV RDW Plt Count Eosinophils % INR Sodium 138 Potassium 4.3 Chloride 103 Carbon Dioxide 30 Anion Gap 5 L BUN 15 Creatinine 0.8 Random Glucose 128 H Magnesium 2.3 Total Bilirubin 0.2 AST 32 ALT 39 Alkaline Phosphatase 93 Creatine Kinase 91 Troponin I < 0.02 Total Protein 6.5 Albumin 3.4 Lipase 121 Patient ordered for 2 units of packed red cells. Patient to be admitted to the hospitalist. *DC/Admit/Observation/Transfer Diagnosis at time of Disposition: Anemia, Low blood pressure, Blood transfusion during current hospitalization - Discharge Dispostion Decision to Admit order: Yes - Referrals - Patient Instructions - Post Discharge Activity
[2018-07-24 15:08] LABS: EOS % 6.8 % (0-4.5); HEMATOCRIT 24.2 % (32.4-45.2); HEMOGLOBIN 7.2 GM/dL (10.7-15.3); MCHC 29.8 g/dl (32.0-36.0); MEAN PLT VOLUME 8.9 fl (7.5-11.1); MONO % 6.2 % (3.8-10.2); PLATELET COUNT 223 K/MM3 (134-434); RBC 3.83 M/mm3 (3.60-5.2); RDW 22.9 % (11.6-15.6)
[2018-07-24 15:10] LABS: MCH 18.8 pg (25.7-33.7)
[2018-07-24] MEDS ORDERED: SODIUM CHLORIDE 1,000 ML IV STA (15:13)
[2018-07-24 15:22] LABS: INR 1.01 (0.83-1.09); PROTHROMBIN TIME (PATIENT) 11.4 SEC (9.7-13.0)
[2018-07-24 15:45] LABS: ALBUMIN 3.4 g/dl (3.4-5.0); ALK PHOS 93 U/L (45-117); ANION GAP 5 MMOL/L (8-16); BILIRUBIN,TOTAL 0.2 mg/dL (0.2-1); BLOOD UREA NITROGEN 15 mg/dL (7-18); CALCIUM 8.1 mg/dL (8.5-10.1); CHLORIDE 103 mmol/L (98-107); CO2 30 mmol/L (21-32); CREATININE 0.8 mg/dL (0.55-1.3); GLUCOSE,RANDOM 128 mg/dL (74-106); LIPASE 121 U/L (73-393); MAGNESIUM 2.3 mg/dL (1.8-2.4); POTASSIUM 4.3 mmol/L (3.5-5.1); SGOT/AST 32 U/L (15-37); SGPT/ALT 39 U/L (13-61); SODIUM 138 mmol/L (136-145); TOT PROT 6.5 g/dl (6.4-8.2)
[2018-07-24] MEDS: NICOTINE 21 MG/24 HOURS TOPICAL PATCH TD SCH (17:30)
--- NOTE | 2018-07-24 17:35 | HP ---
CHIEF COMPLAINT: Generalized fatigue PCP: None HISTORY OF PRESENT ILLNESS: 38 year-old female with a PMH significant for anemia, bipolar disorder, polysubstance abuse, and s/p gastric bypass x [address] [facility] Detox program earlier today and was brought to ED for complaint of generalized fatigue. Found to be mildly hypotensive with microcytic anemic Hgb 7.2. ER course was notable for: (1) BP 90/57 (2) Hgb 7.2, MCV 63 Recent Travel: No PAST MEDICAL HISTORY: Bipolar disorder Polysubstance abuse Anemia PAST SURGICAL HISTORY: Gastric bypass x 7 years Umbilical hernia repair Social History: Single, mother of 5 year-old daughter, unemployed, domiciled living with her sister Smoking: current every day Alcohol: no Drugs: discharged today from [facility] Detox; h/o heroin, xanax, clonazepam abuse Family History: Allergies lactose Adverse Reaction (Severe, Verified 07/21/18 21:54) severe gas soy Adverse Reaction (Severe, Verified 07/21/18 21:54) severe gas Home Medications Medication Instructions Recorded Bupropion HCl [Wellbutrin Sr] 300 mg PO DAILY 07/19/18 Buspirone HCl [Buspar -] 15 mg PO BID 07/19/18 Clindamycin [Cleocin -] 300 mg PO TID 07/19/18 Gabapentin [Neurontin -] 300 mg PO Q8H 07/19/18 Venlafaxine HCl ER [Effexor Xr -] 37.5 mg PO DAILY 07/19/18 Clindamycin [Cleocin -] 300 mg PO TID #7 capsule 07/23/18 Gabapentin [Neurontin -] 600 mg PO TID #90 capsule 07/23/18 Metoprolol Succinate 25 mg PO DAILY #30 tab.er.24h 07/23/18 REVIEW OF SYSTEMS CONSTITUTIONAL: Absent: fever, chills, diaphoresis, generalized weakness, malaise, loss of appetite, weight change HEENT: Absent: rhinorrhea, nasal congestion, throat pain, throat swelling, difficulty swallowing, mouth swelling, ear pain, eye pain, visual changes CARDIOVASCULAR: Absent: chest pain, syncope, palpitations, irregular heart rate, lightheadedness , peripheral edema RESPIRATORY: Absent: cough, shortness of breath, dyspnea with exertion, orthopnea, wheezing, stridor, hemoptysis GASTROINTESTINAL: Absent: abdominal pain, abdominal distension, nausea, vomiting, diarrhea, constipation, melena, hematochezia GENITOURINARY: Absent: dysuria, frequency, urgency, hesitancy, hematuria, flank pain, genital pain MUSCULOSKELETAL: Absent: myalgia, arthralgia, joint swelling, back pain, neck pain SKIN: Absent: rash, itching, pallor HEMATOLOGIC/IMMUNOLOGIC: Absent: easy bleeding, easy bruising, lymphadenopathy, frequent infections ENDOCRINE: Absent: unexplained weight gain, unexplained weight loss, heat intolerance, cold intolerance NEUROLOGIC: Absent: headache, focal weakness or paresthesias, dizziness, unsteady gait, seizure, mental status changes, bladder or bowel incontinence PSYCHIATRIC: Absent: anxiety, depression, suicidal or homicidal ideation, hallucinations. PHYSICAL EXAMINATION Vital Signs - 24 hr 07/24/18 13:47 Temperature 97.9 F Pulse Rate 64 Respiratory 18 Rate Blood Pressure 90/57 L O2 Sat by Pulse 100 Oximetry (%) GENERAL: Awake, alert, and fully oriented, in no acute distress. HEAD: Normal with no signs of trauma. EYES: Pupils equal, round and reactive to light, extraocular movements intact, sclera anicteric, conjunctiva clear. No lid lag. EARS, NOSE, THROAT: Ears normal, nares patent, oropharynx clear without exudates. Moist mucous membranes. NECK: Normal range of motion, supple without lymphadenopathy, JVD, or masses. LUNGS: Breath sounds equal, clear to auscultation bilaterally. No wheezes, and no crackles. No accessory muscle use. HEART: Regular rate and rhythm, normal S1 and S2 without murmur, rub or gallop. ABDOMEN: Soft, nontender, not distended, normoactive bowel sounds, no guarding, no rebound, no masses. No hepatomegaly or splenomegaly. MUSCULOSKELETAL: Normal range of motion at all joints. No bony deformities or tenderness. No CVA tenderness. UPPER EXTREMITIES: 2+ pulses, warm, well-perfused. No cyanosis. No clubbing. No peripheral edema. LOWER EXTREMITIES: 2+ pulses, warm, well-perfused. No calf tenderness. No peripheral edema. NEUROLOGICAL: Cranial nerves II-XII intact. Normal speech. Normal gait. PSYCHIATRIC: Cooperative. Good eye contact. Appropriate mood and affect. SKIN: Warm, dry, normal turgor, no rashes or lesions noted, normal capillary refill. Laboratory Results - last 24 hr 07/24/18 07/24/18 07/24/18 14:40 14:58 14:58 WBC 6.0 RBC 3.83 Hgb 7.2 L Hct 24.2 L MCV 63.0 L MCH 18.8 L MCHC 29.8 L RDW 22.9 H Plt Count 223 MPV 8.9 Absolute Neuts (auto) 3.6 Neutrophils % 60.0 Lymphocytes % 26.0 Monocytes % 6.2 Eosinophils % 6.8 H Basophils % 1.0 Nucleated RBC % 0 PT with INR 11.40 INR 1.01 Sodium Potassium Chloride Carbon Dioxide Anion Gap BUN Creatinine Creat Clearance w eGFR POC Glucometer [id number] Random Glucose Calcium Magnesium Total Bilirubin AST ALT Alkaline Phosphatase Creatine Kinase Troponin I Total Protein Albumin Lipase Blood Type Antibody Screen Crossmatch 07/24/18 07/24/18 14:58 16:56 WBC RBC Hgb Hct MCV MCH MCHC RDW Plt Count MPV Absolute Neuts (auto) Neutrophils % Lymphocytes % Monocytes % Eosinophils % Basophils % Nucleated RBC % PT with INR INR Sodium 138 Potassium 4.3 Chloride 103 Carbon Dioxide 30 Anion Gap 5 L BUN 15 Creatinine 0.8 Creat Clearance w eGFR > 60 POC Glucometer Random Glucose 128 H Calcium 8.1 L Magnesium 2.3 Total Bilirubin 0.2 AST 32 ALT 39 Alkaline Phosphatase 93 Creatine Kinase 91 Troponin I < 0.02 Total Protein 6.5 Albumin 3.4 Lipase 121 Blood Type A POSITIVE Antibody Screen Negative Crossmatch See Detail ASSESSMENT/PLAN: 38 year-old female with a PMH significant for anemia, bipolar disorder, polysubstance abuse, and s/p gastric bypass x [address] [facility] Detox program earlier today and was brought to ED for complaint of generalized fatigue. Placed on observation for symptomatic microcytic anemia. Symptomatic microcytic anemia --Hgb 7.2, MCV 63 --patient states this is chronic since gastric bypass surgery 7 years ago --mildly hypotensive, fatigued --will transfuse 2U PRBC with Lasix 40mg IVP in between units --repeat cbc in am --iron studies ordered as add ons to pre-transfusion blood Bipolar disorder --med rec done by Dr. Hilliard at [facility] --continue Welbutrin XL 300 mg po daily, Gabapentin 600 mg po TID, Buspar 30 mg po BID, and Effexor 37.5 mg po daily Polysubstance abuse --completed detox today FEN Fluids: PO intake adequate Electrolytes: replete as indicated Nutrition: regular diet DVT prophylaxis: lovenox Dispo: continues to require observation. Full code. Hospitalist Screening - Colonoscopy Questionnaire Colonoscopy Questionnaire: Colonoscopy Questionnaire
[2018-07-24 17:46] LABS: URINE APPEARANCE CLEAR; URINE BILIRUBIN NEGATIVE (<2.0 mg/dL); URINE COLOR YELLOW; URINE GLUCOSE (UA) NEGATIVE (NEGATIVE); URINE KETONE NEGATIVE (NEGATIVE); URINE LEUK ESTERASE NEGATIVE (NEGATIVE); URINE NITRITE NEGATIVE (NEGATIVE); URINE PROTEIN NEGATIVE (NEGATIVE); URINE UROBILINOGEN NEGATIVE mg/dL (0.2-1.0)
[2018-07-24 17:48] LABS: HCG,QUALITATIVE URINE Negative
[2018-07-24 18:05] LABS: COCAINE, UR NEGATIVE ng/ml (CUTOFF=300); PHENCYCLIDINE,URINE NEGATIVE ng/ml (CUTOFF=25); URINE AMPHETAMINES NEGATIVE ng/ml (CUTOFF=500); URINE BARBITURATES NEGATIVE ng/ml (CUTOFF=200)
[2018-07-24] MEDS ORDERED: FUROSEMIDE 40 MG/4 ML INJECTABLE VIAL IVPUSH ONE (18:08)
[2018-07-24 18:10] LABS: URINE BENZODIAZEPINES POSITIVE ng/ml (CUTOFF=200)
[2018-07-24 18:12] LABS: METHADONE, UR POSITIVE ng/ml (CUTOFF=300); OPIATES, URI POSITIVE ng/ml (CUTOFF=300)
[2018-07-24 18:47] LABS: ANISOCYTOSIS 3+
[2018-07-24 18:48] LABS: MACROCYTOSIS 1+; OVALOCYTE 1+; PLATELET ESTIMATE ADEQUATE; TARGET CELLS 1+
[2018-07-24] MEDS ORDERED: LORazepam 0.5 MG TABLET PO ONE (20:28)
[2018-07-24] MEDS ORDERED: diphenhydrAMINE HCL 50 MG CAPSULE PO ONE (20:28)
[2018-07-24] MEDS ORDERED: diphenhydrAMINE HCL 25 MG CAPSULE (FP) PO ONE (21:19)
[2018-07-24] MEDS: GABAPENTIN 300 MG CAPSULE (FP) PO SCH (21:27)
[2018-07-24] MEDS: HEPARIN NA (PORCINE) 5,000 UNITS/ML 1ML VIAL SQ SCH (21:28)
[2018-07-24] MEDS ORDERED: busPIRone HCL 10 MG TABLET (FP) PO SCH (22:00)
[2018-07-25] MEDS ORDERED: FUROSEMIDE 40 MG/4 ML INJECTABLE VIAL IVPUSH ONE (00:15)
[2018-07-25] MEDS: HEPARIN NA (PORCINE) 5,000 UNITS/ML 1ML VIAL SQ SCH ×2 (05:15→15:00)
[2018-07-25] MEDS: GABAPENTIN 300 MG CAPSULE (FP) PO SCH ×2 (05:15→15:00)
[2018-07-25] MEDS ORDERED: VENLAFAXINE HCL 37.5 MG E.R. CAPSULE (FP) PO SCH (10:00)
[2018-07-25] MEDS ORDERED: busPIRone HCL 10 MG TABLET (FP) PO SCH (10:00)
[2018-07-25 10:32] LABS: BASO % 1.1 % (0-2.0); EOS % 3.7 % (0-4.5); HEMATOCRIT 32.5 % (32.4-45.2); HEMOGLOBIN 10.3 GM/dL (10.7-15.3); LYMPH % 22.4 % (8-40); MCH 20.6 pg (25.7-33.7); MCHC 31.5 g/dl (32.0-36.0); MEAN CELL VOLUME 65.4 fl (80-96); MEAN PLT VOLUME 9.4 fl (7.5-11.1); MONO % 7.7 % (3.8-10.2); NEUT % 65.1 % (42.8-82.8); PLATELET COUNT 241 K/MM3 (134-434); RBC 4.98 M/mm3 (3.60-5.2); RDW 24.5 % (11.6-15.6); WHITE BLOOD COUNT 5.3 K/mm3 (4.0-10.0)
[2018-07-25 10:35] LABS: ALBUMIN 3.5 g/dl (3.4-5.0); ALK PHOS 95 U/L (45-117); ANION GAP 7 MMOL/L (8-16); BILIRUBIN,TOTAL 0.6 mg/dL (0.2-1); BLOOD UREA NITROGEN 10 mg/dL (7-18); CALCIUM 9.2 mg/dL (8.5-10.1); CHLORIDE 105 mmol/L (98-107); CO2 31 mmol/L (21-32); CREATININE 0.7 mg/dL (0.55-1.3); GLUCOSE,RANDOM 68 mg/dL (74-106); MAGNESIUM 2.2 mg/dL (1.8-2.4); POTASSIUM 4.9 mmol/L (3.5-5.1); SGOT/AST 17 U/L (15-37); SGPT/ALT 37 U/L (13-61); SODIUM 143 mmol/L (136-145); TOT PROT 6.8 g/dl (6.4-8.2)
[2018-07-25] MEDS ORDERED: PT OWN MED DRAWER 7, Y5N ONE (10:49)
[2018-07-25] MEDS: NICOTINE 21 MG/24 HOURS TOPICAL PATCH TD SCH (10:59)
[2018-07-25 15:22] VITALS: BP 99/61; PULSE 78; TEMP 97.6
--- NOTE | 2018-07-25 15:31 | DS ---
Physical Exam: SUBJECTIVE: Patient seen and examined OBJECTIVE: Vital Signs Period Temp Pulse Resp BP Sys/Cooley Pulse Ox Last 24 Hr 97.1 F-98.6 F 62-81 13-20 84-111/50-76 99 PHYSICAL EXAM GENERAL: The patient is awake, alert, and fully oriented, in no acute distress. LUNGS: Breath sounds equal, clear to auscultation bilaterally, no wheezes, no crackles, no accessory muscle use. HEART: Regular rate and rhythm, S1, S2 ABDOMEN: Soft, nontender, nondistended EXTREMITIES: 2+ pulses, warm, well-perfused, no edema. NEUROLOGICAL: Cranial nerves II through XII grossly intact. Normal speech, gait not observed. PSYCH: Normal mood, normal affect. SKIN: Warm, dry, normal turgor LABS 07/24/18 07/24/18 07/24/18 14:40 14:58 14:58 WBC RBC Hgb Hct MCV MCH MCHC RDW Plt Count MPV Absolute Neuts (auto) Neutrophils % Lymphocytes % Monocytes % Eosinophils % Basophils % Nucleated RBC % Hypochromia 3+ Platelet Estimate Adequate Platelet Comment Polychromasia 1+ Poikilocytosis 1+ Anisocytosis 3+ Microcytosis 2+ Macrocytosis 1+ Target Cells 1+ Ovalocytes 1+ Retic Count Sodium 138 Potassium 4.3 Chloride 103 Carbon Dioxide 30 Anion Gap 5 L BUN 15 Creatinine 0.8 Creat Clearance w eGFR > 60 POC Glucometer [phone] Random Glucose 128 H Calcium 8.1 L Magnesium 2.3 Ferritin Total Bilirubin 0.2 AST 32 ALT 39 Alkaline Phosphatase 93 Creatine Kinase 91 Troponin I < 0.02 Total Protein 6.5 Albumin 3.4 Lipase 121 Serum , Qual Urine Color Urine Appearance Urine pH Ur Specific [place] Urine Protein Urine Glucose (UA) Urine Ketones Urine Blood Urine Nitrite Urine Bilirubin Urine Urobilinogen Ur Leukocyte Esterase Urine HCG, Qual Opiates Screen Methadone Screen Barbiturate Screen Phencyclidine Screen Ur Amphetamines Screen MDMA (Ecstasy) Screen Benzodiazepines Screen Cocaine Screen U Marijuana (THC) Screen Blood Type Antibody Screen Crossmatch 07/24/18 07/24/18 07/24/18 14:58 16:56 17:00 WBC RBC Hgb Hct MCV MCH MCHC RDW Plt Count MPV Absolute Neuts (auto) Neutrophils % Lymphocytes % Monocytes % Eosinophils % Basophils % Nucleated RBC % Hypochromia Platelet Estimate Platelet Comment Polychromasia Poikilocytosis Anisocytosis Microcytosis Macrocytosis Target Cells Ovalocytes Retic Count Sodium Potassium Chloride Carbon Dioxide Anion Gap BUN Creatinine Creat Clearance w eGFR POC Glucometer Random Glucose Calcium Magnesium Ferritin Total Bilirubin AST ALT Alkaline Phosphatase Creatine Kinase Troponin I Total Protein Albumin Lipase Serum , Qual Negative Urine Color Yellow Urine Appearance Clear Urine pH 5.0 Ur Specific [place] 1.012 Urine Protein Negative Urine Glucose (UA) Negative Urine Ketones Negative Urine Blood Negative Urine Nitrite Negative Urine Bilirubin Negative Urine Urobilinogen Negative Ur Leukocyte Esterase Negative Urine HCG, Qual Negative Opiates Screen Methadone Screen Barbiturate Screen Phencyclidine Screen Ur Amphetamines Screen MDMA (Ecstasy) Screen Benzodiazepines Screen Cocaine Screen U Marijuana (THC) Screen Blood Type A POSITIVE Antibody Screen Negative Crossmatch See Detail 07/24/18 07/24/18 07/24/18 17:00 19:03 19:03 WBC RBC Hgb Hct MCV MCH MCHC RDW Plt Count MPV Absolute Neuts (auto) Neutrophils % Lymphocytes % Monocytes % Eosinophils % Basophils % Nucleated RBC % Hypochromia Platelet Estimate Platelet Comment Polychromasia Poikilocytosis Anisocytosis Microcytosis Macrocytosis Target Cells Ovalocytes Retic Count Sodium Potassium Chloride Carbon Dioxide Anion Gap BUN Creatinine Creat Clearance w eGFR POC Glucometer Random Glucose Calcium Magnesium Ferritin 4.4 L Total Bilirubin AST ALT Alkaline Phosphatase Creatine Kinase Troponin I Total Protein Albumin Lipase Serum , Qual Urine Color Urine Appearance Urine pH Ur Specific [place] Urine Protein Urine Glucose (UA) Urine Ketones Urine Blood Urine Nitrite Urine Bilirubin Urine Urobilinogen Ur Leukocyte Esterase Urine HCG, Qual Opiates Screen Positive A* Methadone Screen Positive A* Barbiturate Screen Negative Phencyclidine Screen Negative Ur Amphetamines Screen Negative MDMA (Ecstasy) Screen Positive A* Benzodiazepines Screen Positive A* Cocaine Screen Negative U Marijuana (THC) Screen Negative Blood Type A POSITIVE Antibody Screen Crossmatch 07/24/18 07/25/18 07/25/18 19:03 09:40 09:40 WBC 5.3 RBC 4.98 Hgb 10.3 L Hct 32.5 D MCV 65.4 L MCH 20.6 L MCHC 31.5 L RDW 24.5 H Plt Count 241 MPV 9.4 Absolute Neuts (auto) 3.4 Neutrophils % 65.1 Lymphocytes % 22.4 Monocytes % 7.7 Eosinophils % 3.7 Basophils % 1.1 Nucleated RBC % 0 Hypochromia Platelet Estimate Platelet Comment Polychromasia Poikilocytosis Anisocytosis Microcytosis Macrocytosis Target Cells Ovalocytes Retic Count 1.20 Sodium 143 Potassium 4.9 Chloride 105 Carbon Dioxide 31 Anion Gap 7 L BUN 10 Creatinine 0.7 Creat Clearance w eGFR > 60 POC Glucometer Random Glucose 68 L Calcium 9.2 Magnesium 2.2 Ferritin Total Bilirubin 0.6 AST 17 ALT 37 Alkaline Phosphatase 95 Creatine Kinase Troponin I Total Protein 6.8 Albumin 3.5 Lipase Serum , Qual Urine Color Urine Appearance Urine pH Ur Specific [place] Urine Protein Urine Glucose (UA) Urine Ketones Urine Blood Urine Nitrite Urine Bilirubin Urine Urobilinogen Ur Leukocyte Esterase Urine HCG, Qual Opiates Screen Methadone Screen Barbiturate Screen Phencyclidine Screen Ur Amphetamines Screen MDMA (Ecstasy) Screen Benzodiazepines Screen Cocaine Screen U Marijuana (THC) Screen Blood Type Antibody Screen Crossmatch HOSPITAL COURSE: Date of Admission:07/24/18 Date of Discharge: 07/25/18 38 year-old female with a PMH significant for anemia, bipolar disorder, polysubstance abuse, and s/p gastric bypass x 7 years. Discharged from [facility] program earlier today and was brought to ED for complaint of generalized fatigue. Placed on observation for symptomatic microcytic anemia. Symptomatic microcytic anemia --Hgb 7.2, MCV 63 --patient states this is chronic since gastric bypass surgery 7 years ago --mildly hypotensive, fatigued --transfuse 2U PRBC overnight with good response-->Hgb 10.3 --iron studies ordered as add ons to pre-transfusion blood Bipolar disorder --med rec done by Dr. Hilliard at [facility] --continue Welbutrin XL 300 mg po daily, Gabapentin 600 mg po TID, Buspar 30 mg po BID, and Effexor 37.5 mg po daily Polysubstance abuse --completed detox 07/24 Dispo: going to inpatient rehab at [facility]. Minutes to complete discharge: 35 Discharge Summary Reason For Visit: TRANSFUSION OF BLOOD DURING CURRENT HOSPITAL VISIT Current Active Problems Blood transfusion during current hospitalization (Acute) Low blood pressure (Acute) Anemia (Chronic) - Instructions - Home Medications Comprehensive Discharge Medication List: Ambulatory Orders Bupropion HCl [Wellbutrin Sr] 150 mg PO DAILY 07/19/18 Buspirone HCl [Buspar -] 15 mg PO BID 07/19/18 Clindamycin [Cleocin -] 300 mg PO TID 07/19/18 Gabapentin [Neurontin -] 300 mg PO Q8H 07/19/18 Venlafaxine HCl ER [Effexor Xr -] 37.5 mg PO DAILY 07/19/18 Clindamycin [Cleocin -] 300 mg PO TID #7 capsule 07/23/18 Gabapentin [Neurontin -] 600 mg PO TID #90 capsule 07/23/18 Metoprolol Succinate 25 mg PO DAILY #30 tab.er.24h 07/23/18 This patient is new to me today: No Emergency Visit: Yes ED Registration Date: 07/24/18 Care time: The patient presented to the Emergency Department on the above date and was hospitalized for further evaluation of their emergent condition. Critical Care patient: No - Discharge Referral Referred to [facility] No
[2018-07-26 06:06] LABS: SERUM IRON SATURATION 6 % (15-55); TOTAL IRON BINDING CAPACITY 407 ug/dL (250-450); UIBC 384 ug/dL (131-425)
== END 2018-07-25 16:56 | disposition home or self-care (01) ==
LOC: JER 13:47 → JERBED 16:31 → J5S 21:11
PROVIDERS: ADMIT Hospitalist; ATTEND Nurse Practitioner Acute Care
PROC: 30233N1 Transfusion of Nonautologous Red Blood Cells into Peripheral Vein, Percutaneous Approach (ICD-10-PCS; principal; 2018-07-24)
PROC: 3E033GC Introduction of Other Therapeutic Substance into Peripheral Vein, Percutaneous Approach (ICD-10-PCS; 2018-07-24)
PROC: 3E0337Z Introduction of Electrolytic and Water Balance Substance into Peripheral Vein, Percutaneous Approach (ICD-10-PCS; 2018-07-24)
PROC: 3E013GC Introduction of Other Therapeutic Substance into Subcutaneous Tissue, Percutaneous Approach (ICD-10-PCS; 2018-07-24)
DX: D50.9 Iron deficiency anemia, unspecified (principal); I95.9 Hypotension, unspecified; F31.9 Bipolar disorder, unspecified; F17.210 Nicotine dependence, cigarettes, uncomplicated; F19.10 Other psychoactive substance abuse, uncomplicated; Z98.84 Bariatric surgery status
CPT/HCPCS: 36415; 36430; 71045-TC-FY; 80053; 80307; 81003; 82550; 82728; 82962; 83540; 83550; 83690; 83735; 84466; 84484; 84703; 85025; 85044; 85610; 86850; 86900; 86901; 86922; 96361; 96372; 96374; 99285-25; G0378; J1644; J7030; P9038; P9058